=== PATIENT | male | born 1995 | race Caucasian/White ===

== ENCOUNTER 2022-08-05 14:36 | Emergency (ER) | payer BC ==
[~2022-08-05] VITALS: Ht 185.4 cm; Wt 81.8 kg
[2022-08-05 14:48] VITALS: TEMP 97.5
[2022-08-05 15:24] LABS: BASO # 0.1 K/mm3 (0.0-0.2); BASO % 1.6 % (0.0-2.0); EOS # 0.1 K/mm3 (0.0-0.7); EOS % 2.1 % (0.0-4.0); GRAN # 2.1 K/mm3 (1.4-6.5); GRAN % 54.4 % (42.2-75.2); HEMATOCRIT 43.6 % (42.0-52.0); HEMOGLOBIN 15.2 g/dl (13.5-18.0); LYMPH # 1.1 K/mm3 (1.2-3.4); LYMPH % 29.2 % (20.0-51.0); MEAN CELL VOLUME 97 fl (80.0-100.0); MEAN CORPUSCULAR HEMOGLOBIN 34 pg (27-31); MEAN CORPUSCULAR HGB CONC 35 g/dl (33.0-37.0); MEAN PLATELET VOLUME 8.8 fl (7.4-10.4); MONO # 0.5 K/mm3 (0.1-0.6); MONO % 12.4 % (1.7-9.3); PLATELET COUNT 280 K/mm3 (130-400)
[2022-08-05 15:32] LABS: PROTHROMBIN TIME 11.8 SECONDS (9.7-12.8)
[2022-08-05 15:35] LABS: PARTIAL THROMBOPLASTIN TIME 32.2 SECONDS (26.0-37.0)
[2022-08-05 15:41] LABS: ALBUMIN 4.7 gm/dL (3.5-5.0); BILIRUBIN,TOTAL 1.2 mg/dL (0.2-1.2); CREATININE, serum 0.89 mg/dL (0.72-1.25); POTASSIUM 3.3 mmol/L (3.5-4.5); TOTAL PROTEIN 8.4 gm/dL (6.2-8.1)
[2022-08-05 15:46] LABS: TROPONIN-I 0.014 ng/mL (0.00-0.033)
[2022-08-05 16:17] LABS: COLLECTION METHOD CLEAN CATCH
[2022-08-05 16:27] LABS: URINE APPEARANCE Clear (CLEAR/HAZY); URINE BLOOD Negative (NEGATIVE); URINE COLOR Yellow (YELLOW); URINE GLUCOSE Negative (NEGATIVE); URINE KETONE 1+ (NEGATIVE); URINE NITRATE Negative (NEGATIVE); URINE PROTEIN(semi-quant) Negative (NEGATIVE); URINE UROBILINOGEN 0.2 E.U/dL (0.2-1.0)
[2022-08-05 16:33] LABS: TRICYCLIC ANTIDEPRESS URINE NEGATIVE
[2022-08-05 16:34] LABS: SQUAMOUS EPITHELIAL None Seen /hpf (0-10); URINE BACTERIA None Seen /hpf (NONE SEEN); URINE RBC 0-2 /hpf (0-2)
[2022-08-05] MEDS ORDERED: XANAX 0.5MG0.5 MG PO (16:58)
[2022-08-05 17:30] VITALS: BP 129/101; PULSE 85
== END 2022-08-05 17:50 | disposition home or self-care (01) ==
LOC: COL.ER 14:36
PROVIDERS: Family Medicine
DX: F41.0 Panic disorder [episodic paroxysmal anxiety] (principal); F10.980 Alcohol use, unspecified with alcohol-induced anxiety disorder

== ENCOUNTER 2022-09-07 17:59 | Emergency (ER) | payer BC ==
[~2022-09-07] VITALS: Ht 185.4 cm; Wt 79.5 kg
[~2022-09-07 17:59] MED LIST: XANAX 0.5MG0.5 MG PO
[2022-09-07 18:04] VITALS: TEMP 98.3
[2022-09-07] MEDS ORDERED: ATARAX 25MG25 MG/TAB PO (18:54)
[2022-09-07 18:59] VITALS: BP 103/65; PULSE 67
== END 2022-09-07 19:01 | disposition home or self-care (01) ==
LOC: COL.ER 17:59
DX: F41.0 Panic disorder [episodic paroxysmal anxiety] (principal)